=== PATIENT | female | born 1975 | race Caucasian/White ===

== ENCOUNTER 2018-08-19 16:00 | Emergency (ER) | payer OTHER ==
--- NOTE | 2018-08-19 17:07 | XRAY Report ---
Reason: Trauma Procedure Date: 08/19/2018 Accession Number: [id number] / [id number] Procedure: XR - Hand 3 View RT CPT Code: FULL RESULT: EXAM: RIGHT HAND RADIOGRAPHY EXAM DATE: 08/19/2018 04:25 PM. CLINICAL HISTORY: Pain, mainly base of the fifth digit, since fall on the hand yesterday. COMPARISON: None. TECHNIQUE: 3 views. FINDINGS: Bones: Mildly displaced mildly angulated proximal shaft fracture of the fifth metacarpal. No other traumatic or destructive bone abnormality identified. Joints: Normal. No subluxations. Soft Tissues: Dissociated soft tissue swelling. IMPRESSION: Mildly displaced mildly angulated proximal shaft fracture of the fifth metacarpal. RADIA
[2018-08-19] MEDS ORDERED: NAPROXEN 250 MG TABLET PO STA (17:37)
--- NOTE | 2018-08-19 17:54 | ED Physician Documentation ---
PD HPI UPPER EXT INJURY - Stated complaint Stated Complaint: GLF/HAND INJURY - Chief complaint Chief Complaint: Ext Problem - Additonal information Additional information: 43-year-old Female presents the emergency department with complaints of right hand pain after falling injury to it. The patient reports decreased range of motion and swelling. The patient denies injury to her elbow, Shoulder, neck or head. Symptoms are described as moderate. No other associated injuries. Review of Systems Constitutional: denies: Fever Eyes: denies: Discharge Ears: denies: Ear pain Throat: denies: Sore throat Cardiac: denies: Chest pain / pressure Respiratory: denies: Cough GI: denies: Abdominal Pain Skin: denies: Laceration (s) Musculoskeletal: reports: Extremity pain, Extremity swelling PD PAST MEDICAL HISTORY - Past Medical History Past Medical History: No - Past Surgical History Past Surgical History: Yes HEENT: Tonsil/Adenoidectomy - Present Medications Home Medications: Ambulatory Orders Medication Instructions Recorded Confirmed HYDROcod/ACETAM 5/325 [Abiquiu 5/325] 1 each PO Q6H PRN #15 tablet 08/19/18 - Allergies Allergies/Adverse Reactions: Allergies Allergy/AdvReac Type Severity Reaction Status Date / Time No Known Drug Allergies Allergy Verified 08/19/18 16:12 - Social History Does the pt smoke?: No Smoking Status: Never smoker Does the pt drink ETOH?: Yes ETOH Use: Beer Does the pt have substance abuse?: No - Immunizations Immunizations are current?: Yes - POLST Patient has POLST: No PD ED PE NORMAL - General General: Alert and oriented X 3, No acute distress - HEENT HEENT: Atraumatic, PERRL, EOMI, Ears normal - Derm Derm: Normal color - Extremities Extremities: No: No deformity (The patient has tenderness to palpation of the right hand over the fifth metacarpal and there is obvious swelling and deformity. The patient has decreased range of motion of the hand secondary to pain. The patient has no tenderness in the wrist and there is no tenderness in the anatomical snuffbox. No tenderness in the elbow or shoulder. The patient has a normal radial pulse and normal cap refill. There is normal sensation to light touch), No tenderness to palpate, Normal ROM s pain - Neuro Neuro: Alert and oriented X 3, Normal speech - Psych Psych: Normal affect Results - Vitals Vitals: Vital Signs - 24 hr 08/19/18 08/19/18 16:09 18:45 Temperature 36.2 C L Heart Rate 105 H 52 L Respiratory 18 16 Rate Blood Pressure 125/83 H 145/95 H O2 Saturation 100 100 Oxygen O2 Source Room air - Rads (name of study) hand Radiology: Final report received (IMPRESSION: Mildly displaced mildly angulated proximal shaft fracture of the fifth metacarpal. ) Procedures - Splint (location) Upper extremity right Splint applied by: Tech Type of splint: Ulnar gutter Other: Patient tolerated well, No complications, Neurovascular intact PD MEDICAL DECISION MAKING - ED course ED course: The patient was placed in a ulnar gutter splint, I discussed with her the findings on x-ray and plan for follow-up with orthopedics. The patient under stands and agrees. I discussed warning signs and recommended returning to the emergency department immediately for worsening or any concerns. - Sepsis Event Vital Signs: Vital Signs - 24 hr 08/19/18 08/19/18 16:09 18:45 Temperature 36.2 C L Heart Rate 105 H 52 L Respiratory 18 16 Rate Blood Pressure 125/83 H 145/95 H O2 Saturation 100 100 Oxygen O2 Source Room air Departure - Departure Disposition: 01 Home, Self Care Clinical Impression: Metacarpal bone fracture Qualifiers: Encounter type: initial encounter Metacarpal bone: fifth Fracture type: closed Metacarpal location: other portion of metacarpal Fracture alignment: displaced Laterality: right Qualified Code(s): S62.396A - Other fracture of fifth metacarpal bone, right hand, initial encounter for closed fracture Condition: Good Instructions: ED Fx Hand Closed Ch Follow-Up: Frankie Laird MD [Provider Admit Priv/Credential] - (call to schedule an appointment ) Prescriptions: HYDROcod/ACETAM 5/325 [Abiquiu 5/325] 1 each PO Q6H PRN #15 tablet PRN Reason: Pain Comments: These return to the emergency department for any worsening or any concerns Discharge Date/Time: 08/19/18 18:45
[2018-08-19 18:47] VITALS: BP 145/95
== END 2018-08-19 18:45 | disposition home or self-care (01) ==
LOC: ED 16:00
DX: S92.351A Displaced fracture of fifth metatarsal bone, right foot, initial encounter for closed fracture (principal); W10.8XXA Fall (on) (from) other stairs and steps, initial encounter
CPT/HCPCS: 29125; 73130; 99283; A9270